=== PATIENT | female | born 1980 | race Caucasian/White ===

== ENCOUNTER → 2016-11-14 | Outpatient (CLI) | payer BC ==
[~2016-11-14] MED LIST: ALDACTONE25 MG PO; CLARITIN10 MG PO; HYDROCHLOROTHIA25 MG PO; JANUMET 50-5001 EACH PO; LASIX20 MG PO; LEVEMIR100 UNIT/1 SC; LISINOPRIL40 MG PO; LOPRESSOR50 MG PO; PRILOSEC40 MG PO; PROVENTIL HFA 61 INH INH; ZESTRIL40 MG PO
== END ==
LOC: CT 03:48
DX: R16.1 Splenomegaly, not elsewhere classified (principal); D75.81 Myelofibrosis
CPT/HCPCS: J7050; Q9962

== ENCOUNTER → 2016-11-20 | Outpatient (CLI) | payer BC | LOC: OPSV 02:15 | DX: Z03.89 Encounter for observation for other suspected diseases and conditions ruled out (principal) | CPT/HCPCS: 87081; 87880 ==

== ENCOUNTER 2016-12-11 15:51 | Emergency (ER) | payer BC ==
[2016-12-11 16:53] LABS: HEMOGLOBIN 10.7 gm/dl (12.3-15.3); RED BLOOD COUNT 3.9 M/UL (4.00-5.10); WHITE BLOOD COUNT 9.8 K/UL (4.5-11.0)
[2016-12-11 17:02] LABS: BUN/CREATININE RATIO 23 (0-10)
== END 2016-12-11 19:50 | disposition home or self-care (01) ==
LOC: ER1 15:51
PROVIDERS: Nurse Practitioner Family
DX: R10.12 Left upper quadrant pain (principal); E80.6 Other disorders of bilirubin metabolism; E11.9 Type 2 diabetes mellitus without complications; I10 Essential (primary) hypertension; Z90.49 Acquired absence of other specified parts of digestive tract; Z79.84 Long term (current) use of oral hypoglycemic drugs; Z79.899 Other long term (current) drug therapy
CPT/HCPCS: 36415; 80053; 81001; 82150; 83605; 83690; 84703; 85025; 87086; 96361; 96374; 96375; 99284; J2270; J2405; J7030; J7050; Q9962

== ENCOUNTER → 2020-09-12 | Outpatient (CLI) | payer BC ==
[~2020-09-12] MED LIST changes: +ACETAMINOPHEN500 MG PO; +AUGMENTIN 875-1 EACH PO; +BENTYL 20MG TAB20 MG PO; +DULOXETINE HCL60 MG PO; +ESCITALOPRAM OX10 MG PO; +FAMOTIDINE20 MG PO; +FERROUS SULFAT325 M2 PO; +FLEXERIL 10 MG10 MG PO; +GLUCOPHAGE1000 MG PO; +IBUPROFEN600 MG PO; +LODINE CAP 300300 MG PO; +LOPRESSOR 25 MG25 MG PO; +NEURONTIN 100100 MG PO; +PERCOCET 5/325 T1 EA PO; +RANITIDINE HCL150 MG PO; +TESSALON PERLE100 MG PO; +ZOFRAN4 MG MM; +ZOFRAN4 MG PO
== END ==
LOC: EROP 18:21
DX: M79.10 Myalgia, unspecified site (principal); R68.0 Hypothermia, not associated with low environmental temperature; Z20.822 Contact with and (suspected) exposure to COVID-19
CPT/HCPCS: U0002

== ENCOUNTER → 2020-10-13 | Outpatient (CLI) | payer BC ==
[2020-10-13 07:13] LABS: HEMOGLOBIN 10.6 gm/dl (12.3-15.3); RED BLOOD COUNT 3.87 M/UL (4.00-5.10); WHITE BLOOD COUNT 10.7 K/UL (4.5-11.0)
== END ==
LOC: LAB 06:48
PROVIDERS: Internal Medicine Hematology & Oncology
DX: D75.81 Myelofibrosis (principal)
CPT/HCPCS: 85025

== ENCOUNTER → 2020-10-24 | Outpatient (CLI) | payer BC | LOC: LAB 21:19 | DX: U07.1 COVID-19 (principal) | CPT/HCPCS: U0002 ==

== ENCOUNTER 2020-12-30 03:30 | Observation (INO) | payer BC ==
[~2020-12-30] VITALS: Ht 177.8 cm; Wt 99.4 kg
[~2020-12-30 03:30] MED LIST changes: -ACETAMINOPHEN500 MG PO; -AUGMENTIN 875-1 EACH PO; -FERROUS SULFAT325 M2 PO; -PERCOCET 5/325 T1 EA PO
[2020-12-30 04:39] LABS: HEMOGLOBIN 9.1 gm/dl (12.3-15.3); RED BLOOD COUNT 3.52 M/UL (4.00-5.10); WHITE BLOOD COUNT 9.3 K/UL (4.5-11.0)
[2020-12-30 04:45] LABS: BUN/CREATININE RATIO 18 (0-10)
[2020-12-30] MEDS ORDERED: ACETAMINOPHEN500 MG PO (12:08)
[2021-01-01 08:45] LABS: HEMOGLOBIN 10.4 gm/dl (12.3-15.3); WHITE BLOOD COUNT 11.6 K/UL (4.5-11.0)
[2021-01-01 08:53] LABS: RED BLOOD COUNT 3.95 M/UL (4.00-5.10)
[2021-01-01] MEDS ORDERED: ZOFRAN4 MG PO (10:41)
[2021-01-01] MEDS ORDERED: PERCOCET 5/325 T1 EA PO (10:41)
[2021-01-01] MEDS ORDERED: FERROUS SULFAT325 M2 PO (10:41)
--- NOTE | 2021-01-01 12:02 | NUR ---
INSTRUCTED ON FOLLOW UP APPOINTMENTS. TAKE MEDS ORDERED SIGNS AND SYMPTOMS OF MYLOFIBROISIS, AND SPLEENAMEGALY. VERBALIZED UNDERSTANDING. PICK MEDS UP AT PHARMACY. VERBLAIZED UNDERSTANDING. ELISHA NERI R.N.
== END 2021-01-01 12:20 | disposition home or self-care (01) ==
LOC: ER1 03:30 → MED SURG 4 07:05 → CDU 07:05 → MED SURG 4 07:44
PROVIDERS: Internal Medicine; Registered Nurse; ADMIT Internal Medicine
DX: R10.12 Left upper quadrant pain (principal); D75.81 Myelofibrosis; R16.1 Splenomegaly, not elsewhere classified; J84.10 Pulmonary fibrosis, unspecified; D50.9 Iron deficiency anemia, unspecified; F41.9 Anxiety disorder, unspecified; F32.9 Major depressive disorder, single episode, unspecified; E11.9 Type 2 diabetes mellitus without complications; E28.2 Polycystic ovarian syndrome; I10 Essential (primary) hypertension; Z90.710 Acquired absence of both cervix and uterus; Z79.4 Long term (current) use of insulin; Z79.899 Other long term (current) drug therapy; Z20.822 Contact with and (suspected) exposure to COVID-19
CPT/HCPCS: 36415; 80053; 81001; 82728; 82962; 83010; 83540; 83550; 83615; 84550; 85025; 85045; 85610; 85730; 96374; 96375; 96376; 99285; G0378; J2270; J2405; Q9967; U0002

== ENCOUNTER 2021-01-19 14:33 | Inpatient (IN) | payer BC ==
[~2021-01-19] VITALS: Ht 177.8 cm; Wt 104.3 kg
[~2021-01-19 14:33] MED LIST changes: +ACETAMINOPHEN500 MG PO; +FERROUS SULFAT325 M2 PO; +PERCOCET 5/325 T1 EA PO
[2021-01-19 16:00] LABS: HEMOGLOBIN 9.6 gm/dl (12.3-15.3); RED BLOOD COUNT 3.7 M/UL (4.00-5.10); WHITE BLOOD COUNT 9.9 K/UL (4.5-11.0)
[2021-01-19 16:19] LABS: BUN/CREATININE RATIO 13 (0-10)
[2021-01-20 04:51] LABS: HEMOGLOBIN 7.9 gm/dl (12.3-15.3)
[2021-01-20 05:16] LABS: BUN/CREATININE RATIO 13 (0-10)
[2021-01-20 05:18] LABS: WHITE BLOOD COUNT 7.3 K/UL (4.5-11.0)
[2021-01-20 05:19] LABS: RED BLOOD COUNT 3.06 M/UL (4.00-5.10)
[2021-01-21 04:58] LABS: BUN/CREATININE RATIO 14 (0-10)
--- NOTE | 2021-01-21 07:21 | NUR ---
0700 :0600 DOSE OF VANCOMYCIN HUNG PER BEN pHd, STATING VANC LEVEL DRAWN TOO EARLY. UNABLE TO SCAN DOSE D/T [employer] DOCUMENTATION OF NOT GIVEN D/T HIGH VANC LEVEL. BEN IN PHARMACY AWARE AND RN INSTRUCTED TO ENTER NOTE.
[2021-01-21 11:30] LABS: HEMOGLOBIN 8.1 gm/dl (12.3-15.3); RED BLOOD COUNT 3.16 M/UL (4.00-5.10); WHITE BLOOD COUNT 7.4 K/UL (4.5-11.0)
[2021-01-22 04:30] LABS: RED BLOOD COUNT 3.14 M/UL (4.00-5.10); WHITE BLOOD COUNT 7.2 K/UL (4.5-11.0)
[2021-01-22 04:41] LABS: BUN/CREATININE RATIO 14 (0-10)
[2021-01-22] MEDS ORDERED: AUGMENTIN 875-1 EACH PO (14:14)
== END 2021-01-22 17:36 | disposition home or self-care (01) | DRG 193 ==
LOC: ER1 14:33 → CDU 20:11 → M/S 20:11
PROVIDERS: Emergency Medicine; Internal Medicine; ADMIT Internal Medicine
DX: J15.9 Unspecified bacterial pneumonia (principal); J96.01 Acute respiratory failure with hypoxia; D75.81 Myelofibrosis; E28.2 Polycystic ovarian syndrome; I25.10 Atherosclerotic heart disease of native coronary artery without angina pectoris; I10 Essential (primary) hypertension; Z20.822 Contact with and (suspected) exposure to COVID-19; D50.9 Iron deficiency anemia, unspecified; Z79.899 Other long term (current) drug therapy; Z79.84 Long term (current) use of oral hypoglycemic drugs; Z86.16 Personal history of COVID-19; Z90.49 Acquired absence of other specified parts of digestive tract; Z83.3 Family history of diabetes mellitus; Z82.49 Family history of ischemic heart disease and other diseases of the circulatory system
CPT/HCPCS: ECHO; 36415; 36600; 70450; 80048; 80053; 80202; 82550; 82553; 82803; 82962; 83605; 83615; 83690; 83874; 83880; 84439; 84443; 84484; 84703; 85025; 86140; 87040; 93005; 93306; 94760; 96374; 96375; 99285; J0456; J0696; J1940; J2270; J2405; J2543; J3370; J7050; J7070; Q9967; U0002

== ENCOUNTER → 2021-02-01 | Outpatient (CLI) | payer BC ==
[~2021-02-01] MED LIST changes: +AUGMENTIN 875-1 EACH PO
== END ==
LOC: RAD 23:02
DX: J18.9 Pneumonia, unspecified organism (principal)
CPT/HCPCS: 71046

== ENCOUNTER → 2021-02-14 | Outpatient (CLI) | payer BC | LOC: DTC 11:10 | DX: E66.09 Other obesity due to excess calories (principal); E11.9 Type 2 diabetes mellitus without complications | CPT/HCPCS: G0109 ==

== ENCOUNTER 2021-04-09 03:46 | Emergency (ER) | payer BC ==
[2021-04-09 05:13] LABS: BORDETELLA PARAPERTUSSIS Not Detected (Not Detectd); BORDETELLA PERTUSSIS Not Detected (Not Detectd); CHLAMYDIA PNEUMONIAE Not Detected (Not Detectd); CORONAVIRUS HKU1 Not Detected (Not Detectd); CORONAVIRUS NL63 Not Detected (Not Detectd); CORONAVIRUS OC43 Not Detected (Not Detectd); CORONOAVIRUS 229E Not Detected (Not Detectd); HUMAN METAPNEUMOVIRUS Not Detected (Not Detectd); HUMAN RHINOVIRUS/ENTEROVIRUS Not Detected (Not Detectd); INFLUENZA A Not Detected (Not Detectd); INFLUENZA B Not Detected (Not Detectd); MYCOPLASMA PNEUMONIAE Not Detected (Not Detectd); PARAINFLUENZA VIRUS 1 Not Detected (Not Detectd); PARAINFLUENZA VIRUS 2 Not Detected (Not Detectd); PARAINFLUENZA VIRUS 4 Not Detected (Not Detectd); RESPIRATORY SYNCYTIAL VIRUS Not Detected (Not Detectd)
[2021-04-09 06:14] LABS: PARAINFLUENZA VIRUS 3 DETECTED (Not Detectd); SARS-CoV-2 NOT DETECTED (Not Detectd)
== END 2021-04-09 05:45 | disposition home or self-care (01) ==
LOC: ER1 03:46
PROVIDERS: Emergency Medicine
DX: J02.9 Acute pharyngitis, unspecified (principal); Z20.822 Contact with and (suspected) exposure to COVID-19
CPT/HCPCS: 0240U; 71045; 87633; 93005; 96372; 99284; J1100

== ENCOUNTER 2021-08-11 02:54 | Emergency (ER) | payer BC ==
[2021-08-11 03:38] LABS: HEMOGLOBIN 9.1 gm/dl (12.3-15.3); RED BLOOD COUNT 3.1 M/UL (4.00-5.10); WHITE BLOOD COUNT 7.3 K/UL (4.5-11.0)
[2021-08-11] MEDS ORDERED: HYDROCODON-ACE1 EAC4 PO (05:01)
== END 2021-08-11 05:09 | disposition home or self-care (01) ==
LOC: ER1 02:54
PROVIDERS: Emergency Medicine
DX: M79.602 Pain in left arm (principal); I10 Essential (primary) hypertension; E11.9 Type 2 diabetes mellitus without complications
CPT/HCPCS: 72125; 73030; 73080; 73090; 80053; 82550; 82553; 83874; 84484; 85025; 99283

== ENCOUNTER 2021-08-16 18:36 | Emergency (ER) | payer OTHER ==
[~2021-08-16 18:36] MED LIST changes: +HYDROCODON-ACE1 EAC4 PO
[2021-08-16] MEDS ORDERED: IBUPROFEN800 MG PO (20:43)
[2021-08-16] MEDS ORDERED: CYCLOBENZAPRINE10 MG PO (20:43)
== END 2021-08-16 21:00 | disposition home or self-care (01) ==
LOC: ER1 18:36
DX: S16.1XXA Strain of muscle, fascia and tendon at neck level, initial encounter (principal); I10 Essential (primary) hypertension; E11.9 Type 2 diabetes mellitus without complications; V49.9XXA Car occupant (driver) (passenger) injured in unspecified traffic accident, initial encounter
CPT/HCPCS: 71045; 72125; 72128; 72131; 72170; 99284

== ENCOUNTER 2021-12-09 06:27 | Emergency (ER) | payer BC ==
[~2021-12-09 06:27] MED LIST changes: +CYCLOBENZAPRINE10 MG PO; +IBUPROFEN800 MG PO
[2021-12-09 07:31] LABS: HEMOGLOBIN 7.7 gm/dl (12.3-15.3); RED BLOOD COUNT 2.65 M/UL (4.00-5.10); WHITE BLOOD COUNT 5.3 K/UL (4.5-11.0)
== END 2021-12-09 13:35 | disposition home or self-care (01) ==
LOC: ER1 06:27
PROVIDERS: Emergency Medicine
DX: R10.31 Right lower quadrant pain (principal); R11.0 Nausea; E11.9 Type 2 diabetes mellitus without complications; I10 Essential (primary) hypertension; D75.81 Myelofibrosis
CPT/HCPCS: 76830; 80053; 81001; 83690; 84703; 85025; 96374; 96375; 96376; 99284; J2270; J2405; J7030; Q9967

== ENCOUNTER → 2022-03-11 | Outpatient (CLI) | payer OTHER | LOC: US 03-04 14:30 | DX: E04.1 Nontoxic single thyroid nodule (principal); D64.9 Anemia, unspecified; R59.1 Generalized enlarged lymph nodes; D75.81 Myelofibrosis | CPT/HCPCS: 76536 ==

== ENCOUNTER → 2022-03-20 | Outpatient (CLI) | payer OTHER | END | disposition home or self-care (01) | LOC: US 09:10 | DX: E04.1 Nontoxic single thyroid nodule (principal); D72.829 Elevated white blood cell count, unspecified; D64.9 Anemia, unspecified; D75.81 Myelofibrosis ==

== ENCOUNTER → 2022-04-18 | Outpatient (CLI) | payer OTHER ==
[~2022-04-18] MED LIST changes: +ALAVERT D-12 A1 EACH PO; +ALLOPURINOL300 MG PO; +AMLODIPINE BESY10 MG PO; +FLONASE 0.05% N16 GM; +GLUCOTROL5 MG PO; +HYDRALAZINE HCL25 MG PO; +HYDROCODONE-AC1 EACH PO; +JAKAFI10 MG PO; +NORTRIPTYLINE H10 MG PO; +OZEMPIC0.25 MG/0. SQ; +SINGULAIR10 MG PO; +TRICOR 145 MG145 MG PO; +VASCEPA1 GM PO; +VITAMIN D21250 MCG PO
[2022-04-18 09:24] LABS: HEMOGLOBIN 8.4 gm/dl (12.3-15.3); RED BLOOD COUNT 2.87 M/UL (4.00-5.10); WHITE BLOOD COUNT 6.3 K/UL (4.5-11.0)
== END ==
LOC: OPSV2 08:00
PROVIDERS: Anesthesiology; Surgery
DX: Z01.818 Encounter for other preprocedural examination (principal); I10 Essential (primary) hypertension; E11.9 Type 2 diabetes mellitus without complications; D75.81 Myelofibrosis
CPT/HCPCS: 36415; 80048; 85025; 93005

== ENCOUNTER 2022-04-24 05:43 | Day surgery (SDC) | payer OTHER ==
[~2022-04-24] VITALS: Ht 177.8 cm; Wt 103.1 kg
[2022-04-24] MEDS ORDERED: LABETALOL HCL100 MG PO (14:36)
[2022-04-24] MEDS ORDERED: ONDANSETRON ODT8 MG PO (14:38)
[2022-04-25 06:22] LABS: RED BLOOD COUNT 2.36 M/UL (4.00-5.10); WHITE BLOOD COUNT 4.9 K/UL (4.5-11.0)
[2022-04-25 06:57] LABS: HEMOGLOBIN 6.9 gm/dl (12.3-15.3)
[2022-04-25] MEDS ORDERED: HYDROCODON-ACE1 EAC4 PO (11:18)
== END 2022-04-25 13:10 | disposition home or self-care (01) ==
LOC: MED SURG 4 05:43 → OR 05:43 → MED SURG 4 11:20 → OR 04-25 13:10
PROVIDERS: Surgery
DX: C73 Malignant neoplasm of thyroid gland (principal); I10 Essential (primary) hypertension; E78.5 Hyperlipidemia, unspecified; J44.9 Chronic obstructive pulmonary disease, unspecified; K21.9 Gastro-esophageal reflux disease without esophagitis; E66.01 Morbid (severe) obesity due to excess calories; M19.90 Unspecified osteoarthritis, unspecified site; D64.9 Anemia, unspecified; E11.9 Type 2 diabetes mellitus without complications; F41.9 Anxiety disorder, unspecified; Z79.84 Long term (current) use of oral hypoglycemic drugs; Z79.899 Other long term (current) drug therapy; Z68.32 Body mass index [BMI] 32.0-32.9, adult
CPT/HCPCS: 36415; 80048; 82962; 83970; 84439; 84443; 84703; 85025; 86850; 86900; 86901; 94664; 94760; J0690; J1100; J1170; J2001; J2250; J2370; J2405; J2704; J3010